=== PATIENT | male | born 1995 | race Caucasian/White ===

== ENCOUNTER 2017-02-05 14:55 | Observation (INO) | payer MEDICAID ==
--- NOTE | 2017-02-05 16:47 | ED Physician Documentation ---
History of Present Illness - Stated complaint Stated Complaint: CHEST/NECK/BACK PX - Chief complaint Chief Complaint: General - History obtained from History obtained from: Patient - History of Present Illness Timing: Other (He was stretching a couple of hours ago to pop his back, but felt anterior left chest pain which slowly spread out across the chest and was worse with deep breathing. Now feels gurgully in the epigastrium. Denies cough , pedal edema, calf pain, recent travel, fevers.) Review of Systems Constitutional: denies: Fever, Chills Respiratory: denies: Cough, Hemoptysis, Wheezing GI: denies: Nausea, Vomiting, Diarrhea PD PAST MEDICAL HISTORY - Past Medical History Respiratory: Asthma - Past Surgical History Past Surgical History: No - Present Medications Home Medications: Ambulatory Orders Medication Instructions Recorded Confirmed No Known Home Medications [No 02/05/17 02/05/17 Known Home Medications] - Allergies Allergies/Adverse Reactions: Allergies Allergy/AdvReac Type Severity Reaction Status Date / Time Penicillins Allergy Severe throat Verified 02/05/17 15:07 swelling - Social History Does the pt smoke?: Yes Smoking Status: Current every day smoker Does the pt drink ETOH?: Yes Does the pt have substance abuse?: No - Immunizations Immunizations are current?: Yes PD ED PE NORMAL - Vitals Vital signs reviewed: Yes - General General: Alert and oriented X 3, No acute distress - Neck Neck: Supple, no meningeal sign, No bony TTP - Cardiac Cardiac: RRR, No murmur - Respiratory Respiratory: No respiratory distress, Clear bilaterally - Abdomen Abdomen: Non tender - Extremities Extremities: No edema, No calf tenderness / cord - Neuro Neuro: Alert and oriented X 3, Normal speech - Psych Psych: Normal mood, Normal affect Results - Vitals Vitals: Vital Signs - 24 hr 02/05/17 02/05/17 02/05/17 14:59 17:16 17:19 Temperature 37.2 C Heart Rate 112 H 115 H 111 H Respiratory 20 20 18 Rate Blood Pressure 130/79 134/67 H 113/57 L O2 Saturation 98 100 100 02/05/17 17:40 Temperature Heart Rate 109 H Respiratory 18 Rate Blood Pressure 122/87 H O2 Saturation 99 Oxygen O2 Source Room air - Labs Labs: Laboratory Tests 02/05/17 02/05/17 02/05/17 17:01 17:01 17:01 WBC 16.4 H RBC 5.18 Hgb 15.3 Hct 46.4 MCV 89.5 MCH 29.6 MCHC 33.0 RDW 13.2 Plt Count 225 MPV 8.4 Neut # 12.9 H Lymph # 2.1 [place] # 1.0 Eos # 0.1 Baso # 0.1 Absolute Nucleated RBC 0.00 Nucleated RBCs 0.0 PT 11.6 INR 1.0 Sodium 139 Potassium 3.8 Chloride 108 Carbon Dioxide 23 Anion Gap 8.0 BUN 9 Creatinine 1.0 Estimated GFR (MDRD) 93 Glucose 99 Calcium 9.9 - Rads (name of study) 2v chest Radiology: EMP read contemporaneously (Lg left pneumo) 1v chest post chest tube Radiology: EMP read contemporaneously (Interval placement of a left-sided chest tube with reexpansion of the left long, ill-defined heterogenous the left lung opacity, followup recommended.) Procedures - Chest Tube (location) left 4th middle axillary line Chest tube preparation: Consent obtained (written), Time out completed, Sterile prep and drape Chest tube location: Left, Mid axillary line Chest tube anesthesia: Lidocaine (15ml) Chest tube size: 20 Chest tube return: Air Chest tube after care: Sutured, Confirmed with xray PD MEDICAL DECISION MAKING - ED course ED course: 21-year-old large left spontaneous pneumothorax. Spoke with the on-call surgeon , Dr. Asher prefers regular chest tubes as opposed to the small kit and a 20 Danish chest tube was placed in standard fashion to the left chest. Spoke with Dr. Andujar for admission at 540 p.m. Departure - Departure Disposition: ED Place in Observation Clinical Impression: Pneumothorax on left Condition: Serious
[2017-02-05] MEDS ORDERED: LIDOCAINE 1%-EPI 1:100000 20 ML MDV ONE (16:58)
[2017-02-05] MEDS ORDERED: SODIUM CHLORIDE 0.9% 1,000 ML IV ONE (16:58)
[2017-02-05] MEDS ORDERED: MIDAZOLAM 2 MG/2 ML VIAL ONE (17:03)
[2017-02-05] MEDS ORDERED: ceFAZolin 2 GM/50 ML 50 ML IV ONE ×2 (17:04→17:06)
[2017-02-05] MEDS ORDERED: fentaNYL 100 MCG/2 ML VIAL ONE (17:04)
[2017-02-05] MEDS ORDERED: MIDAZOLAM 2 MG/2 ML VIAL IVP STA ×2 (17:06→17:35)
[2017-02-05] MEDS ORDERED: fentaNYL 100 MCG/2 ML VIAL IVP STA (17:06)
--- NOTE | 2017-02-05 17:07 | XRAY Preliminary Report ---
Exam: XR Chest 2 View PA/LAT IMPRESSION: Large left pneumothorax with minimal mediastinal shift to the right. RADIA The critical result notification system was initiated by Dr. Eric Cintron at 17:03 hrs on 02/05/17. The above critical findings were discussed with Dr. Sarkar by Dr. Eric Cintron at 17:05 hrs on . SITE ID: [id number]
[2017-02-05 17:08] LABS: BASOPHILS # (AUTO) 0.1 10^3/uL (0.0-0.1); BASOPHILS % (AUTO) 0.8 %; EOSINOPHILS # (AUTO) 0.1 10^3/uL (0.0-0.7); EOSINOPHILS % (AUTO) 0.8 %; HCT - HEMATOCRIT 46.4 % (42.0-52.0); HGB - HEMOGLOBIN 15.3 g/dL (14.0-18.0); LYMPHOCYTES # (AUTO) 2.1 10^3/uL (1.5-3.5); MEAN CORPUSCULAR HEMOGLOBIN 29.6 pg (27.0-31.0); MEAN CORPUSCULAR VOLUME 89.5 fL (80.0-94.0); MEAN PLATELET VOLUME 8.4 fL (7.4-11.4); MONOCYTES % (AUTO) 6.4 %; NEUTROPHILS # (AUTO) 12.9 10^3/uL (1.5-6.6); RED BLOOD COUNT 5.18 10^6/uL (4.70-6.10); RED CELL DISTRIBUTION WIDTH 13.2 % (12.0-15.0); UNCORRECTED WHITE BLOOD COUNT 16.4 x10^3/uL; WHITE BLOOD COUNT 16.4 x10^3/uL (4.8-10.8)
--- NOTE | 2017-02-05 17:09 | XRAY Report ---
EXAM: CHEST RADIOGRAPHY EXAM DATE: 02/05/2017 04:50 PM. CLINICAL HISTORY: Left chest pain. COMPARISON: 05/20/2015. TECHNIQUE: 2 views. FINDINGS: Lungs/Pleura: Large left pneumothorax with lung collapse. No pleural effusion. No right pneumothorax. Normal volumes. Mediastinum: Minimal shift to the right, otherwise heart and mediastinal contours are unremarkable. Other: No bony abnormalities noted. IMPRESSION: Large left pneumothorax with minimal mediastinal shift to the right. RADIA The critical result notification system was initiated by Dr. Eric Cintron at 17:03 hrs on 02/05/17. The above critical findings were discussed with Dr. Sarkar by Dr. Eric Cintron at 17:05 hrs on . Referring Provider Line: [phone] SITE ID: [id number]
[2017-02-05 17:15] LABS: PT - PROTHROMBIN TIME 11.6 secs (9.9-12.6)
[2017-02-05 17:17] LABS: CALCIUM 9.9 mg/dL (8.5-10.3); POTASSIUM 3.8 mmol/L (3.5-5.0)
[2017-02-05] MEDS ORDERED: HYDROmorphone 1 MG/ML SYRINGE ONE (17:33)
[2017-02-05] MEDS ORDERED: HYDROmorphone 1 MG/ML SYRINGE IVP STA (17:35)
[2017-02-05] MEDS ORDERED: ACETAMINOPHEN 325 MG TABLET PO PRN (18:10)
[2017-02-05] MEDS ORDERED: HYDROmorphone 1 MG/ML SYRINGE IVP PRN (18:10)
[2017-02-05] MEDS ORDERED: ONDANSETRON 4 MG/2 ML VIAL IVP PRN (18:10)
[2017-02-05] MEDS ORDERED: SODIUM CHLORIDE FLUSH 0.9% 10 ML SYRINGE IVP PRN (18:10)
--- NOTE | 2017-02-05 18:21 | XRAY Preliminary Report ---
Exam: XR Chest 1 View IMPRESSION: 1. Interval placement of left sided chest tube with reexpansion of the left lung. 2. Ill-defined heterogeneous left midlung opacity. Recommend follow-up to complete resolution. RADIA SITE ID: [id number]
--- NOTE | 2017-02-05 18:23 | XRAY Report ---
EXAM: CHEST RADIOGRAPHY EXAM DATE: 02/05/2017 05:56 PM. CLINICAL HISTORY: Post chest tube. COMPARISON: Chest radiograph 02/05/2017. TECHNIQUE: 1 view. FINDINGS: Lungs/Pleura: Left-sided chest tube with reexpansion of the left lung. Heterogeneous left midlung opa city. Mediastinum: Stable. Other: New left-sided chest tube. Left chest wall soft tissue emphysema. IMPRESSION: 1. Interval placement of left sided chest tube with reexpansion of the left lung. 2. Ill-defined heterogeneous left midlung opacity. Recommend follow-up to complete resolution. RADIA Referring Provider Line: [phone] SITE ID: [id number]
[2017-02-05] MEDS ORDERED: ALBUTEROL 8 GM INHALER INH PRN (18:30)
[2017-02-05] MEDS ORDERED: ALBUTEROL NEB 2.5 MG/3 ML INH PRN (18:41)
[2017-02-05] MEDS: LORazepam 2 MG/ML SYRINGE IVP PRN ×2 (18:43→22:54)
--- NOTE | 2017-02-05 18:47 | HISTORY & PHYSICAL EXAMINATION ---
Chief Complaint - Chief Complaint Chief Complaint: short of breathing History of Present Illness - Admitted From Admitted From:: ER - History of Present Illness Pain/Problem Location Description: anterior of left chest Severity: 7/10 from pain scale Quality: sharp Timinpm today Duration: 2 hour then pain came back Improved with: non Worsened by: deep breathing Associated Symptoms: non HPI Comment/Other: 21 yrs old male with PMH of Asthma, who present ER for evaluation of short of breathing and left chest pain. Pt state when he was stretching at around 1 pm today he felt pop his back, then he felt sharp chest pain at anterior of his left chest which was worsening with deep breathing, and with short of breathing. The chest pain lasted until 3:30 pm. Pt state the chest pain and SOB came back again when he drive car to this hospital. Pt also report anxiety as well. Pt denies fever, chill, cough, palpitation, syncope, headache, abdominal pain. There is no other complaints at the time. CXR reveals large left lung pneumothorax with minimal right side shift. Chest tube was inserted in the ER. Pt's vital is stable. Second CXR after insert of chest tube confirms chest tube in place, and left lung is expanding. Pt report he smokes cigarette daily one pack, and marijuana, denies alcohol abuse or other drug abuse. Review of Systems - Cardiovascular Cariovascular: reports: Chest pain - Respiratory Respiratory: reports: SOB with exertion History - Past Medical History Respiratory: reports: Asthma MRSA Hx?: No Meds/Allgy - Home Medications Home Medications: Ambulatory Orders Medication Instructions Recorded Confirmed No Known Home Medications [No 02/05/17 02/05/17 Known Home Medications] - Allergies Allergies/Adverse Reactions: Allergies Allergy/AdvReac Type Severity Reaction Status Date / Time Penicillins Allergy Severe throat Verified 02/05/17 15:07 swelling Exam - Vital Signs Vital Signs: Vital Signs x48h Temp Pulse Resp BP Pulse Ox 02/05/17 18:43 97 18 107/59 L 97 02/05/17 17:40 109 H 18 122/87 H 99 02/05/17 17:19 111 H 18 113/57 L 100 02/05/17 17:16 115 H 20 134/67 H 100 02/05/17 14:59 37.2 C 112 H 20 130/79 98 - Physical Exam General Appearance: positive: Alert, Mild distress, Anxious Eyes Bilateral: positive: Normal inspection, PERRL ENT: positive: ENT inspection nml, Pharynx nml Neck: positive: Nml inspection, Trachea midline Respiratory: positive: Chest non-tender, Other (diminished lung sound at left side lung) Cardiovascular: positive: Regular rate & rhythm, No murmur Peripheral Pulses: positive: 2+ Abdomen: positive: Non-tender, Nml bowel sounds, No distention Back: positive: Nml inspection Skin: positive: Color nml, Warm Extremities: positive: Non-tender, Full ROM, Nml appearance Neurologic/Psychiatric: positive: Oriented x3, CN's nml (2-12), Motor nml Conclusion/Plan - Lab Results Fish Bones: 02/06/17 05:49 02/06/17 05:49 - Other Other Results/Comments: 1, Pneumothorax pt was inserted chest tube which was in the place and left lung is expanding per CXR, surgeon was consulted as well, will follow up Pt is on medical floor with tele, vital Q4H, chest tube management protocol. 2 chest pain on left side and SOB Pt has left pneumothorax. It was the most likely the etiology. Check troponin, EKG to R/O CAD. Albuterol PRN, O2 NC PRN, RT consulted as well pain control 3, anxiety Ativan PRN
[2017-02-05] MEDS ORDERED: NICOTINE 21 MG PATCH TOP SCH (19:00)
[2017-02-05] MEDS: SODIUM CHLORIDE FLUSH 0.9% 10 ML SYRINGE IVP SCH (19:30)
--- NOTE | 2017-02-05 22:05 | CONSULTATION NOTE ---
Surgery Consult - Admit Date Hospital Admission Date: 02/05/17 - Consult Date Consult Date: 02/05/17 Requesting Provider: ED attending - Home Meds/Allergies Home Medications: Patient History Medication Instructions Recorded Confirmed No Known Home Medications [No 02/05/17 02/05/17 Known Home Medications] Allergies/Adverse Reactions: Allergies Allergy/AdvReac Type Severity Reaction Status Date / Time Penicillins Allergy Severe throat Verified 02/05/17 15:07 swelling - Consultation Note Consultation Note: History of Present Illness - Stated complaint Stated Complaint: CHEST/NECK/BACK PX - Chief complaint Chief Complaint: General - History obtained from History obtained from: Patient - History of Present Illness 21 yo male states he was stretching earlier today and became short of breath and had left sided chest pain. ppd smoker x8 years. Denies any other medical diseases. Review of Systems Constitutional: denies: Fever, Chills Respiratory: denies: Cough, Hemoptysis, Wheezing GI: denies: Nausea, Vomiting, Diarrhea PD PAST MEDICAL HISTORY - Past Medical History Respiratory: Asthma - Past Surgical History Past Surgical History: No - Present Medications Home Medications: Ambulatory Orders Medication Instructions Recorded Confirmed No Known Home Medications [No 02/05/17 02/05/17 Known Home Medications] - Allergies Allergies/Adverse Reactions: Allergies Allergy/AdvReac Type Severity Reaction Status Date / Time Penicillins Allergy Severe throat Verified 02/05/17 15:07 swelling - Social History Does the pt smoke?: Yes Smoking Status: Current every day smoker Does the pt drink ETOH?: Yes Does the pt have substance abuse?: No - Immunizations Immunizations are current?: Yes PE - Vitals Vital signs reviewed: Yes - General General: Alert and oriented X 3, No acute distress - Neck Neck: Supple, - Cardiac Cardiac: RRR, No murmur - Respiratory Respiratory: No respiratory distress, Clear bilaterally, Decrease at left apex. - Abdomen Abdomen: Non tender - Extremities Extremities: No edema, No calf tenderness / cord - Neuro Neuro: Alert and oriented X 3, Normal speech - Psych Psych: Normal mood, Normal affect Results - Vitals Vitals: Vital Signs - 24 hr 02/05/17 02/05/17 02/05/17 14:59 17:16 17:19 Temperature 37.2 C Heart Rate 112 H 115 H 111 H Respiratory 20 20 18 Rate Blood Pressure 130/79 134/67 H 113/57 L O2 Saturation 98 100 100 02/05/17 17:40 Temperature Heart Rate 109 H Respiratory 18 Rate Blood Pressure 122/87 H O2 Saturation 99 Oxygen O2 Source Room air - Labs Labs: Laboratory Tests 02/05/17 02/05/17 02/05/17 17:01 17:01 17:01 WBC 16.4 H RBC 5.18 Hgb 15.3 Hct 46.4 MCV 89.5 MCH 29.6 MCHC 33.0 RDW 13.2 Plt Count 225 MPV 8.4 Neut # 12.9 H Lymph # 2.1 [place] # 1.0 Eos # 0.1 Baso # 0.1 Absolute Nucleated RBC 0.00 Nucleated RBCs 0.0 PT 11.6 INR 1.0 Sodium 139 Potassium 3.8 Chloride 108 Carbon Dioxide 23 Anion Gap 8.0 BUN 9 Creatinine 1.0 Estimated GFR (MDRD) 93 Glucose 99 Calcium 9.9 - Rads (name of study) 2v chest Radiology: EMP read contemporaneously (Lg left pneumo) 1v chest post chest tube CXRRadiology: EMP read contemporaneously (Interval placement of a left-sided chest tube with reexpansion of the left long, ill-defined heterogenous the left lung opacity, followup recommended.) 21 yo male with left PTX and possible ill defined left lung opacity. Continue pain control CT chest in Am Daily CXR O2 Nasal cannula and incentive spirometer If CT shows pathology other than spontaneous pneumothorax patient will need to be transferred to higher level of care with cardiothoracic surgery service
[2017-02-05] MEDS ORDERED: MORPHINE PCA 50 MG IV PRN (22:18)
[2017-02-06] MEDS: LORazepam 2 MG/ML SYRINGE IVP PRN (04:46)
[2017-02-06] MEDS: SODIUM CHLORIDE FLUSH 0.9% 10 ML SYRINGE IVP SCH ×2 (04:47→08:22)
[2017-02-06 06:00] LABS: HCT - HEMATOCRIT 41.4 % (42.0-52.0); HGB - HEMOGLOBIN 13.8 g/dL (14.0-18.0); MEAN CORPUSCULAR HEMOGLOBIN 30.2 pg (27.0-31.0); MEAN CORPUSCULAR HGB CONC 33.4 g/dL (32.0-36.0); MEAN CORPUSCULAR VOLUME 90.6 fL (80.0-94.0); RED BLOOD COUNT 4.57 10^6/uL (4.70-6.10); WHITE BLOOD COUNT 10.5 x10^3/uL (4.8-10.8)
[2017-02-06 06:09] LABS: ALBUMIN/GLOBULIN RATIO 1.6 (1.0-2.2); BILIRUBIN,TOTAL 0.4 mg/dL (0.2-1.0); CALCIUM 8.9 mg/dL (8.5-10.3); TOTAL PROTEIN 6.4 g/dL (6.7-8.2)
[2017-02-06] MEDS ORDERED: LORazepam 2 MG/ML SYRINGE IVP ONE ×2 (08:15→11:56)
[2017-02-06] MEDS ORDERED: POLYETHYLENE GLYCOL 3350 17 GM PACKET PO SCH (09:00)
[2017-02-06] MEDS ORDERED: FAMOTIDINE 20 MG TABLET PO SCH (09:00)
[2017-02-06] MEDS ORDERED: IOPAMIDOL-300 100 ML VIAL IVP ONE (09:01)
--- NOTE | 2017-02-06 10:39 | CT Report ---
CONTRAST ENHANCED CT EXAM OF THE CHEST: 02/06/2017 CLINICAL HISTORY: Left pneumothorax with suspected lesion. COMPARISON: Chest x-rays of 02/05/2017. TECHNIQUE: The patient received 100 mL of Isovue-300 as the contrast agent. A CT scan of the chest was obtained at 5 x 5 mm intervals in axial, coronal and sagittal reconstruction images. FINDINGS: The mediastinum shows a few small benign appearing lymph nodes in the anterior peritracheal region. These measure 5 mm or less in diameter. Normal cardiac size is seen. The aorta shows no significant abnormality. The lung windows demonstrate a left chest tube noted in place. Part of the left chest tube appears to reside within the parenchyma of the inferior segment of the left lingula. There is adjacent mild parenchymal disease silhouetting the portion of the left chest tube within the inferior segment of the left lingula. This most likely represents reaction to the chest tube. Parenchymal disease is also noted in the periphery of the superior and inferior segment of the left lingula. There is a moderate degree of parenchymal disease noted within the superior segment of the left lower lobe. This parenchymal disease is nonspecific, it may be a result of atelectasis due to the prior severe pneumothorax. Other possibility is now superimposed pneumonia. No residual pneumothorax is seen. There is some mild subcutaneous emphysema along the lateral aspect of the left hemithorax. The right lung shows no significant abnormality. The bones appear normal. Axillary regions show no significant abnormality. Small blebs are noted in each lung apex. IMPRESSION: 1. LEFT CHEST TUBE IS NOTED IN PLACE. PART OF THE LEFT CHEST TUBE APPEARS TO RESIDE WITHIN THE PARENCHYMA OF THE INFERIOR SEGMENT OF THE LEFT LINGULA. 2. PARENCHYMAL DISEASE IS NOTED IN THE LATERAL ASPECT OF THE LEFT LINGULA AND ESPECIALLY IN THE SUPERIOR SEGMENT OF THE LEFT LOWER LOBE. THIS PARENCHYMAL DISEASE IS NONSPECIFIC. IT MAY REPRESENT ATELECTASIS A RESULT OF THE PRIOR LARGE PNEUMOTHORAX. SECONDARY CONSIDERATION IS A SUPERIMPOSED PNEUMONIA. 3. SMALL AMOUNT OF SUBCUTANEOUS EMPHYSEMA IS SEEN ALONG THE LATERAL ASPECT OF THE LEFT HEMITHORAX. 4. SMALL BLEBS ARE NOTED IN EACH LUNG APEX. COMMENT: The patient's physician, Dr. Asher, was notified of the above findings by Dr. Anguiano on 02/06/2017 at 10:[address] In accordance with CT protocol optimization, one or more of the following dose reduction techniques were utilized for this exam: automated exposure control, adjustment of mA and/or KV based on patient size, or use of iterative reconstructive technique. JOB #: [id number] EXT JOB #: [id number] TRES
--- NOTE | 2017-02-06 10:46 | PROVIDER PROGRESS NOTE ---
Subjective - General Admit Date: 02/05/17 Procedure Date: 02/05/17 Post Op Days: 1 Procedure Performed: ER placement of Left chest tube - Review of Systems Wound/Incisions: positive: Dressing dry and intact Drain Type: 20 Frisian left chest tube Drain Output Description: Serosanguenous Approximate mls Output: 50 General: positive: No symptoms HEENT: positive: No symptoms Pulmonary: positive: Pleuritic chest pain Cardiovascular: positive: No symptoms Gastrointestinal: positive: No symptoms Genitourinary: positive: No symptoms Musculoskeletal: positive: No symptoms Skin: positive: No symptoms Psychiatric: positive: No symptoms All Other Systems: positive: Reviewed and negative - Other Other Information/Narrative: Patinet seen at bedside. States feels much better. No issues reported overnight Objective - Patient Data Reviewed Vital Signs: Yes Vital Signs: Vital Signs x48h Temp Pulse Resp BP Pulse Ox 02/06/17 08:10 36.4 C L 93 22 139/73 H 100 02/06/17 06:00 18 02/06/17 04:38 37.0 C 69 18 142/88 H 96 02/06/17 04:00 16 02/06/17 03:46 18 Weight: Weight 02/04/17 02/05/17 02/06/17 23:59 23:59 23:59 Weight (kg) 94.7 kg Intake & Output: Intake and Output Totals x24h 02/04/17 02/05/17 02/06/17 23:59 23:59 23:59 Intake Total 1022 Output Total 1350 Balance -328 - Lab Results Lab Results: 02/06/17 05:49 02/06/17 05:49 Other Lab Results: Lab Results x24hrs 02/06/17 02/06/17 02/05/17 Range/Units 05:49 05:49 19:14 WBC 10.5 (4.8-10.8) x10^3/uL RBC 4.57 L (4.70-6.10) 10^6/uL Hgb 13.8 L (14.0-18.0) g/dL Hct 41.4 L (42.0-52.0) % MCV 90.6 (80.0-94.0) fL MCH 30.2 (27.0-31.0) pg MCHC 33.4 (32.0-36.0) g/dL RDW 13.0 (12.0-15.0) % Plt Count 175 (130-450) 10^3/uL MPV 8.0 (7.4-11.4) fL Sodium 140 (135-145) mmol/L Potassium 4.0 (3.5-5.0) mmol/L Chloride 108 (101-111) mmol/L Carbon Dioxide 25 (21-32) mmol/L Anion Gap 7.0 (6-13) BUN 8 (6-20) mg/dL Creatinine 1.0 (0.6-1.2) mg/dL Estimated GFR (MDRD) 93 (>89) Glucose 101 H (70-100) mg/dL Calcium 8.9 (8.5-10.3) mg/dL Total Bilirubin 0.4 (0.2-1.0) mg/dL AST 18 (10-42) IU/L ALT 17 (10-60) IU/L Alkaline Phosphatase 53 (42-121) IU/L Troponin I < 0.04 (<0.49) ng/mL Total Protein 6.4 L (6.7-8.2) g/dL Albumin 3.9 (3.2-5.5) g/dL Globulin 2.5 (2.1-4.2) g/dL Albumin/Globulin Ratio 1.6 (1.0-2.2) - Imaging Results Radiology Imaging: positive: Discussed with rads (Chest tube appearst to be in lung parenchyma, [place] and atelectasis noted.), EMP read contemporaneously - Current Medications Current Medications: Current Medications Generic Name Dose Route Start Last Admin Trade Name Arlen PRN Reason Stop Dose Admin Famotidine 20 mg 02/06/17 09:00 02/06/17 09:52 Pepcid PO 20 mg DAILY JAISON Administration Morphine Sulfate/Sodium Chloride 50 mg 02/05/17 22:18 02/05/17 23:36 Morphine Line Puller (Use Line Puller Order Set) IV 50 mg [employer] PRN Administration PAIN Protocol Polyethylene Glycol 17 gm 02/06/17 09:00 02/06/17 09:54 Miralax PO Not Given DAILY JAISON Sodium Chloride 10 ml 02/05/17 22:00 02/06/17 08:22 Normal Saline Flush 0.9% IVP 10 ml Q8HR JAISON Administration - Physical Exam Wound/Incisions: positive: Dressing dry and intact Eyes Bilateral: positive: EOMI ENT: positive: No signs of dehydration Neck: positive: No JVD Respiratory: positive: Breath sounds nml (B/L breath sounds noted at apex. Chest tube with minimal serosanguenous fluid. No air leak, [id number].) Cardiovascular: positive: Regular rate & rhythm Abdomen: positive: Non-tender Skin: positive: Warm, Dry Extremities: positive: Nml appearance Neurologic/Psychiatric: positive: Oriented x3 Impression/Plan - Problem List Problem List: 21 yo male s/p left chest tube placement in ED for spontaneous PTx with possible parenchymal placement Pt to be transferred to thoracic service under Dr. Alas at [facility] today for further management and treatment NPO Continue Pleural vac to suction Continue O2
--- NOTE | 2017-02-06 11:01 | PROVIDER PROGRESS NOTE ---
Subjective - Prog Note Date Prog Note Date: 02/06/17 (n) Prog Note Time: 10:57 - Subjective Pt reports feeling: No change (pt state he is fine) Objective - Vital Signs/Intake & Output Vital Signs: Vital Signs x48h Temp Pulse Resp BP Pulse Ox 02/06/17 08:10 36.4 C L 93 22 139/73 H 100 02/06/17 06:00 18 02/06/17 04:38 37.0 C 69 18 142/88 H 96 02/06/17 04:00 16 02/06/17 03:46 18 Intake & Output: Intake & Output 02/03/17 02/04/17 02/05/17 02/06/17 23:59 23:59 23:59 23:59 Intake Total 1022 Output Total 1350 Balance -328 - Objective General Appearance: positive: No acute distress, Alert Eyes Bilateral: positive: Normal inspection, PERRL ENT: positive: ENT inspection nml, Pharynx nml Neck: positive: Nml inspection, Trachea midline Respiratory: positive: Chest non-tender, No respiratory distress, Other ( decreased lung sound at left) Cardiovascular: positive: Regular rate & rhythm, No murmur, Other (better controlled chest pain) Peripheral Pulses: 2+ Radial (R), 2+ Radial (L), 2+ Dorsalis pedis (R), 2+ Dorsalis pedis (L) Abdomen: positive: Non-tender, Nml bowel sounds, No distention Back: positive: Nml inspection Skin: positive: Color nml, Warm Extremities: positive: Non-tender, Full ROM, Nml appearance Neurologic/Psychiatric: positive: Oriented x3, Motor nml, Sensation nml - Lab Results Fish Bones: 02/06/17 05:49 02/06/17 05:49 Other Labs: Lab Results x24hrs 02/06/17 02/06/17 02/05/17 Range/Units 05:49 05:49 19:14 WBC 10.5 (4.8-10.8) x10^3/uL RBC 4.57 L (4.70-6.10) 10^6/uL Hgb 13.8 L (14.0-18.0) g/dL Hct 41.4 L (42.0-52.0) % MCV 90.6 (80.0-94.0) fL MCH 30.2 (27.0-31.0) pg MCHC 33.4 (32.0-36.0) g/dL RDW 13.0 (12.0-15.0) % Plt Count 175 (130-450) 10^3/uL MPV 8.0 (7.4-11.4) fL Sodium 140 (135-145) mmol/L Potassium 4.0 (3.5-5.0) mmol/L Chloride 108 (101-111) mmol/L Carbon Dioxide 25 (21-32) mmol/L Anion Gap 7.0 (6-13) BUN 8 (6-20) mg/dL Creatinine 1.0 (0.6-1.2) mg/dL Estimated GFR (MDRD) 93 (>89) Glucose 101 H (70-100) mg/dL Calcium 8.9 (8.5-10.3) mg/dL Total Bilirubin 0.4 (0.2-1.0) mg/dL AST 18 (10-42) IU/L ALT 17 (10-60) IU/L Alkaline Phosphatase 53 (42-121) IU/L Troponin I < 0.04 (<0.49) ng/mL Total Protein 6.4 L (6.7-8.2) g/dL Albumin 3.9 (3.2-5.5) g/dL Globulin 2.5 (2.1-4.2) g/dL Albumin/Globulin Ratio 1.6 (1.0-2.2) Assessment/Plan - Problem List (1) Pneumothorax on left Impression: reviewed pt's vital and lab test, see and evaluation pt at bedside, answer pt's questions CT reveals chest tube placement with possible parenchymal placement. follow up with surgeon, pt will be transferred to [facility] for further evaluation and treatment Pt is notified to be transferred. Pt's questions are answered as well, will continue to support pt's care.
[2017-02-06] MEDS ORDERED: NICOTINE 21 MG PATCH TOP SCH (12:00)
[2017-02-06 12:03] VITALS: BP 158/93
== END 2017-02-06 12:10 | disposition short-term general hospital (02) ==
LOC: ED 14:55 → MS 18:10
PROVIDERS: ADMIT Nurse Practitioner Gerontology; ATTEND Nurse Practitioner Gerontology
DX: J93.83 Other pneumothorax (principal); J45.909 Unspecified asthma, uncomplicated; F41.9 Anxiety disorder, unspecified; F17.210 Nicotine dependence, cigarettes, uncomplicated
CPT/HCPCS: 36415; 71010; 71020; 71260; 80048; 80053; 84484; 85025; 85027; 85610; 96374; 96375; 96376; 99283; 99284; A9270; G0378; J0690; J1170; J2060; Q9967

== ENCOUNTER 2017-02-06 12:11 | Outpatient (CLI) | payer MEDICAID | END 2017-02-06 12:12 | disposition home or self-care (01) | LOC: EMS 12:11 | PROVIDERS: ATTEND Surgery | DX: J93.9 Pneumothorax, unspecified (principal) | CPT/HCPCS: A0170; A0425; A0426 ==

== ENCOUNTER 2018-11-24 12:42 | Emergency (ER) | payer MEDICAID ==
--- NOTE | 2018-11-24 13:29 | XRAY Report ---
Reason: SOA. rib pain Procedure Date: 11/24/2018 Accession Number: [id number] / [id number] Procedure: XR - Ribs w/PA Chest RT CPT Code: FULL RESULT: EXAM: RIGHT RIB RADIOGRAPHY EXAM DATE: 11/24/2018 01:17 PM. CLINICAL HISTORY: Shortness of breath. Rib pain. COMPARISON: CHEST 1 VIEW 02/05/2017 6:01 PM. TECHNIQUE: 1 view of the chest and 2 views of the ribs. FINDINGS: Bones: No abnormalities detected in the area marked as painful along the lower right thorax. No fracture or bone lesion. Lungs: No focal opacities. No pneumothorax. No pleural effusions. Mediastinum: Heart and mediastinal contours are unremarkable. Other: None. IMPRESSION: No fracture is detected. RADIA
--- NOTE | 2018-11-24 14:25 | ED Physician Documentation ---
PD HPI CHEST PAIN - Stated complaint Stated Complaint: CHEST PAIN - Chief complaint Chief Complaint: Resp - History obtained from History obtained from: Patient - History of Present Illness Timing - onset: How many days ago (6) Timing - onset during: Light activity Timing - duration: Days (had onset right anterolateral lower rib pain 6 days ago intermittently and has been more consistent the past 2 days. No noted injury. Had little bit of cough but not feeling very sick.) Timing - details: Gradual onset, Still present, Waxing and waning Quality: Aching, Sharp, Pain Location: Right chest (lower right anterolateral chest wall/rib area. No rash nor sores.) Radiation: No: Neck, Back Improved by: Rest Worsened by: Inspiration, Movement. No: Position Associated symptoms: No: Shortness of air, Nausea, Feeling faint / dizzy, Palpitations Similar symptoms before: Diagnosis (pneumothorax on left couple years ago, spontaneous.) Recently seen: Not recently seen Review of Systems Constitutional: denies: Fever, Chills, Myalgias Nose: denies: Rhinorrhea / runny nose, Congestion Throat: denies: Sore throat Cardiac: denies: Palpitations, Pedal edema, Calf pain Respiratory: reports: Cough (mild). denies: Dyspnea, Wheezing GI: denies: Abdominal Pain, Nausea, Vomiting, Diarrhea Skin: denies: Rash, Lesions PD PAST MEDICAL HISTORY - Past Medical History Cardiovascular: None Respiratory: Asthma Endocrine/Autoimmune: None GI: None : None HEENT: None Psych: None Musculoskeletal: None Derm: None - Past Surgical History Past Surgical History: No - Present Medications Home Medications: Ambulatory Orders Medication Instructions Recorded Confirmed Dexamethasone [Decadron] 4 mg PO DAILY #5 tablet 11/24/18 Hydrocodone/Acetaminophen [[place] 1 each PO Q6H PRN #20 tablet 11/24/18 5-325 Tablet] Naproxen 500 mg PO BID #20 tablet 11/24/18 - Allergies Allergies/Adverse Reactions: Allergies Allergy/AdvReac Type Severity Reaction Status Date / Time Penicillins Allergy Severe throat Verified 11/24/18 12:49 swelling - Social History Does the pt smoke?: Yes Smoking Status: Current every day smoker Does the pt drink ETOH?: Yes Does the pt have substance abuse?: No - Immunizations Immunizations are current?: Yes PD ED PE NORMAL - Vitals Vital signs reviewed: Yes - General General: Alert and oriented X 3, No acute distress, Well developed/nourished - HEENT HEENT: Pharynx benign - Neck Neck: Supple, no meningeal sign, No adenopathy - Cardiac Cardiac: RRR, No murmur - Respiratory Respiratory: Clear bilaterally, Other (no chestwall tenderness) - Abdomen Abdomen: Normal bowel sounds, Soft, Non tender, Non distended - Back Back: No CVA TTP - Derm Derm: Normal color, Warm and dry, No rash - Neuro Neuro: Alert and oriented X 3, No motor deficit, Normal speech Results - Vitals Vitals: Vital Signs - 24 hr 11/24/18 11/24/18 12:47 14:33 Temperature 36.5 C 37.1 C Heart Rate 68 63 Respiratory 16 16 Rate Blood Pressure 119/73 113/73 O2 Saturation 99 100 Oxygen O2 Source Room air - Rads (name of study) right chest/ribs Radiology: Prelim report reviewed (normal), EMP read contemporaneously, See rad report PD MEDICAL DECISION MAKING - ED course Complexity details: reviewed results, considered differential, d/w patient Departure - Departure Disposition: 01 Home, Self Care Clinical Impression: Right-sided chest pain Condition: Stable Record reviewed to determine appropriate education?: Yes Instructions: ED Chest Pain Atypical Unkn Cause Prescriptions: Dexamethasone [Decadron] 4 mg PO DAILY #5 tablet Hydrocodone/Acetaminophen [[place] 5-325 Tablet] 1 each PO Q6H PRN #20 tablet PRN Reason: Pain Naproxen 500 mg PO BID #20 tablet Comments: Your chest x-ray appears normal. Presume it some inflammation around the chest wall of the outer part of the lung. Will change anti-inflammatories to naproxen and add steroid L anti-inflammatory Decadron. To that add Tylenol or hydrocodone as needed for pains. Recheck if not improving over the next 3-5 days or so. Return if other symptoms. Discharge Date/Time: 11/24/18 15:24
[2018-11-24 14:33] VITALS: BP 113/73
[2018-11-24] MEDS ORDERED: NAPROXEN 250 MG TABLET PO STA (14:52)
[2018-11-24] MEDS ORDERED: CHERRY SYRUP 10 ML UDC PO ONE (14:52)
[2018-11-24] MEDS ORDERED: HYDROcod/ACETAM 5/325 MG TABLET PO STA (14:52)
[2018-11-24] MEDS ORDERED: DEXAMETHASONE 10 MG/ML VIAL PO STA (14:52)
== END 2018-11-24 15:24 | disposition home or self-care (01) ==
LOC: ED 12:42
DX: R07.9 Chest pain, unspecified (principal); F17.200 Nicotine dependence, unspecified, uncomplicated
CPT/HCPCS: 71101; 99283; 99284; A9270